=== PATIENT | female | born 1935 | race African-American/Black ===

== ENCOUNTER 2017-04-26 18:42 | Inpatient (IN) | payer MEDICARE, MEDICAID ==
[~2017-04-26] VITALS: Ht 161.9 cm; Wt 81.6 kg
[2017-04-26 21:00] VITALS: BP 149/76
[2017-04-26] MEDS ORDERED: M.V.I. ADULT10 ML ORAL (21:51)
[2017-04-26] MEDS ORDERED: GLUCAGEN1 M1 IM (21:51)
[2017-04-26] MEDS ORDERED: IPRATROPIU0.2 MG/1 M HHN (21:51)
[2017-04-26] MEDS ORDERED: LORAZEPAM1 MG ORAL (21:51)
[2017-04-26] MEDS ORDERED: ASPIRIN81 MG ORAL (21:51)
[2017-04-26] MEDS ORDERED: CATAPRES0.1 MG ORAL (21:51)
[2017-04-26] MEDS ORDERED: GLIMEPIRIDE4 MG ORAL (21:51)
[2017-04-26] MEDS ORDERED: SEROQUEL200 MG ORAL (21:51)
[2017-04-26] MEDS ORDERED: PANTOPRAZOLE SO40 MG ORAL (21:51)
[2017-04-26] MEDS ORDERED: AMLODIPINE BES2.5 MG ORAL (21:51)
[2017-04-26] MEDS ORDERED: METFORMIN HCL500 M1 ORAL (21:51)
[2017-04-26] MEDS ORDERED: NORCO 5-325 TA1 EAC1 ORAL (21:51)
[2017-04-26] MEDS ORDERED: ZOLPIDEM TARTRAT5 MG ORAL (21:51)
[2017-04-26] MEDS ORDERED: LEVOTHYROXINE25 MCG ORAL (21:51)
[2017-04-26] MEDS ORDERED: SYMLIN600 MCG/1 SUBQ (21:51)
[2017-04-26] MEDS ORDERED: DIVALPROEX SOD500 MG PO (21:51)
[2017-04-26] MEDS ORDERED: COLACE100 MG ORAL (21:51)
[2017-04-26] MEDS ORDERED: HydrALAZINE 25mg tab ORAL PRN (22:15)
[2017-04-27] VITALS (7 sets, daily range): BP systolic 139–157; BP diastolic 67–84
[2017-04-27 02:06] LABS: APPEARANCE,URINE CLEAR; KETONES,URINE NEGATIVE (NEGATIVE); LEUKOCYTE ESTERASE ,URINE NEGATIVE (NEGATIVE); NITRITE,URINE NEGATIVE (NEGATIVE); PH,URINE 6.5 (4.5-8.0); PROTEIN,URINE NEGATIVE (NEGATIVE); UROBILINOGEN,URINE NORMAL MG/DL (0.0-1.0)
[2017-04-27] MEDS ORDERED: Haloperidol 5mg/ml Inj IM ONE (03:00)
[2017-04-27] MEDS: NovoLOG Insulin Flexpen SUBQ SCH ×4 (05:47→20:52)
[2017-04-27 06:46] LABS: BASOPHILS % (AUTO) 1.7 % (0.0-2.0); EOSINOPHILS % (AUTO) 2.6 % (0.0-3.0); LYMPHOCYTES % (AUTO) 37.1 % (20.0-45.0); MEAN CORPUSCULAR HEMOGLOBIN 29.4 PG (27.0-31.0); MEAN CORPUSCULAR HGB CONC 32.5 G/DL (32.0-36.0); MEAN CORPUSCULAR VOLUME 91 FL (80-99); MEAN PLATELET VOLUME 7.2 FL (6.5-10.1); NEUTROPHILS % (AUTO) 49.6 % (45.0-75.0); PLATELET COUNT 199 K/UL (150-450); RED BLOOD COUNT 4.27 M/UL (4.20-5.40); RED CELL DISTRIBUTION WIDTH 13.7 % (11.6-14.8)
[2017-04-27 07:01] LABS: HEMOGLOBIN A1C 10.6 % (4.3-6.0)
[2017-04-27 07:28] LABS: FOLIC ACID 15.4 NG/ML (8.6-58.9)
[2017-04-27 07:38] LABS: ALANINE AMINOTRANSFERASE 19 U/L (12-78); ALBUMIN/GLOBULIN RATIO 0.8 (1.0-2.7); ANION GAP 7 mmol/L (5-15); ASPARTATE AMINO TRANSFERASE 20 U/L (15-37); CALCIUM 9.7 MG/DL (8.5-10.1); CARBON DIOXIDE 29 MMOL/L (21-32); CHLORIDE 106 MMOL/L (98-107); POTASSIUM 3.8 MMOL/L (3.5-5.1); SODIUM 142 MMOL/L (136-145); THYROID STIMULATING HORMONE 1.227 uiU/mL (0.358-3.740); TOTAL PROTEIN 7.6 G/DL (6.4-8.2); VALPROIC ACID 12 MCG/ML (50-100)
[2017-04-27] MEDS: Depakote 500mg tab ORAL SCH (09:20)
[2017-04-27] MEDS: Heparin 5000 units/ml inj SUBQ SCH ×2 (09:22→20:52)
--- NOTE | 2017-04-27 11:11 | Diagnostic Imaging Report ---
Indication: Chest pain Technique: One view of the chest Comparison: none Findings: Lungs and pleural spaces are clear. Heart size is upper limits of normal Impression: No acute process
--- NOTE | 2017-04-27 14:18 | History and Physical ---
History of Present Illness General Date patient seen: Apr 27, 2017 Time patient seen: 16:49 Reason for Hospitalization: AMS Present Illness HPI 82y/o female with pmh of HTN, HLD, hypothyroidism, DM2, psychiatric disorder who presents from SNF with AMS. Pt poor historian. Per reports, pt increasingly agitated and noted to be hearing/seeing thinks, talking to herself. Pt only oriented to name. Unclear baseline mental status, but pt usually less agitated and w/o katharine hallucinations. No reports of f/c, n/v, d/c, chest pain, SOB, focal weakness/numbness/tingling. Pt states she has some kids in her stomach. Allergies: Coded Allergies: GRAPE (Verified Allergy, Unknown, Rash, 04/26/17) PENICILLINS (Verified Allergy, Unknown, Rash, 04/26/17) TOMATO (Verified Allergy, Unknown, Rash, 04/26/17) Medication History Scheduled Amlodipine Besylate* (Amlodipine Besylate*), 2.5 MG ORAL DAILY, (Reported) Aspirin* (Aspirin*), 81 MG ORAL DAILY, (Reported) Divalproex Sodium (Divalproex Sodium), 500 MG PO DAILY, (Reported) Docusate Sodium* (Colace*), 250 MG ORAL DAILY, (Reported) Glimepiride* (Glimepiride*), 4 MG ORAL BEFORE BREAKFAST, (Reported) Levothyroxine Sodium* (Levothyroxine Sodium*), 25 MCG ORAL BEFORE BREAKFAST, ( Reported) Metformin Hcl* (Metformin Hcl*), 500 MG ORAL TWICE A DAY, (Reported) Mvi, Adult No.1 With Vit K (M.v.i. Adult), 10 TAB ORAL DAILY, (Reported) Pantoprazole* (Pantoprazole*), 40 MG ORAL BEFORE BREAKFAST, (Reported) Quetiapine Fumarate* (Seroquel*), 200 MG ORAL TWICE A DAY, (Reported) Scheduled PRN Clonidine Hcl* (Catapres*), 0.1 MG ORAL EVERY 6 HOURS PRN for For High Blood Pressure, (Reported) Glucagon,Human Recombinant (Glucagen), 1 MG IM for Hypoglycemia, (Reported) Hydrocodone Bit/Acetaminophen 5-325* ([place] 5-325 Tablet*), 1 TAB ORAL Q6HR PRN for For Pain, (Reported) Ipratropium [place] 0.5MG/2.5ML (Ipratropium [place] 0.5MG/2.5ML), 0.5 MG HHN Q6H PRN for Shortness of Breath, (Reported) Lorazepam* (Lorazepam*), 1 MG ORAL EVERY 6 HOURS PRN for For Anxiety, (Reported) Zolpidem Tartrate* (Zolpidem Tartrate*), 5 MG ORAL BEDTIME PRN for Insomnia, ( Reported) Miscellaneous Medications Insulin Regular, Human (Humulin R), 600 MCG SUBQ, (Reported) Patient History History Provided By: Patient, Medical Record, PMD Healthcare decision maker N Resuscitation status Full Code Advanced Directive on File Past Medical/Surgical History Past Medical/Surgical History: (1) HTN (hypertension) (2) HLD (hyperlipidemia) (3) Hypothyroidism (4) DM2 (diabetes mellitus, type 2) (5) Psychiatric disorder Family History Family History: Patient reports no known family medical history. Social History Social History: (1) lives at [facility] Review of Systems Constitutional: Reports: weakness Eye: Reports: no symptoms ENT: Reports: no symptoms Respiratory: Reports: no symptoms Cardiovascular: Reports: no symptoms Gastrointestinal: Reports: no symptoms Genitourinary: Reports: no symptoms Musculoskeletal: Reports: no symptoms Skin: Reports: no symptoms Psychiatric: Reports: hallucinations Neurological: Reports: no symptoms Endocrine: Reports: no symptoms Hematologic/Lymphatic: Reports: no symptoms Physical Exam Physical Exam Narrative General: alert, cooperative, no distress, appears stated age, confused, + hallucinations Head: normocephalic, without obvious abnormality, atraumatic Eyes: conjunctivae/corneas clear. PERRL, EOM's intact Throat: lips, mucosa, and tongue normal. MMM Neck: supple, symmetrical, trachea midline, and no JVD Lungs: clear to auscultation bilaterally Heart: regular rate and rhythm, S1, S2 normal, no murmur, click, rub or gallop Abdomen: soft, non-tender, non-distended, bowel sounds normal; no masses or organomegaly Extremities: extremities normal, atraumatic, no cyanosis or edema Pulses: 2+ and symmetric Skin: skin color, texture, turgor normal; no rashes or lesions Neurologic: grossly normal, no focal deficits Last 24 Hour Vital Signs Date Time Temp Pulse Resp B/P (MAP) Pulse Ox O2 Delivery O2 Flow Rate FiO2 04/27/17 08:00 96.4 67 20 157/73 100 Room Air 04/27/17 04:00 98.1 83 17 156/78 99 04/27/17 00:00 97.7 75 20 153/84 97 Room Air 04/26/17 21:00 99.0 76 20 149/76 99 Room Air Intake and Output 04/27/17 04/28/17 19:00 07:00 Intake Total 480 ml Balance 480 ml Intake Oral 480 ml # Voids 2 Laboratory Tests Test 04/27/17 01:40 04/27/17 05:20 Urine Color Yellow Urine Appearance Clear Urine pH 6.5 (4.5-8.0) Urine Specific [place] 1.010 (1.005-1.035) Urine Protein Negative (NEGATIVE) Urine Glucose (UA) 2+ (NEGATIVE) H Urine Ketones Negative (NEGATIVE) Urine Occult Blood Negative (NEGATIVE) Urine Nitrite Negative (NEGATIVE) Urine Bilirubin Negative (NEGATIVE) Urine Urobilinogen Normal MG/DL (0.0-1.0) Urine Leukocyte Esterase Negative (NEGATIVE) White Blood Count 5.0 K/UL (4.8-10.8) Red Blood Count 4.27 M/UL (4.20-5.40) Hemoglobin 12.6 G/DL (12.0-16.0) Hematocrit 38.7 % (37.0-47.0) Mean Corpuscular Volume 91 FL (80-99) Mean Corpuscular Hemoglobin 29.4 PG (27.0-31.0) Mean Corpuscular Hemoglobin Concent 32.5 G/DL (32.0-36.0) Red Cell Distribution Width 13.7 % (11.6-14.8) Platelet Count 199 K/UL (150-450) Mean Platelet Volume 7.2 FL (6.5-10.1) Neutrophils (%) (Auto) 49.6 % (45.0-75.0) Lymphocytes (%) (Auto) 37.1 % (20.0-45.0) Monocytes (%) (Auto) 9.0 % (1.0-10.0) Eosinophils (%) (Auto) 2.6 % (0.0-3.0) Basophils (%) (Auto) 1.7 % (0.0-2.0) Sodium Level 142 MMOL/L (136-145) Potassium Level 3.8 MMOL/L (3.5-5.1) Chloride Level 106 MMOL/L (98-107) Carbon Dioxide Level 29 MMOL/L (21-32) Anion Gap 7 mmol/L (5-15) Blood Urea Nitrogen 16 mg/dL (7-18) Creatinine 1.0 MG/DL (0.55-1.30) Estimat Glomerular Filtration Rate mL/min (>60) Glucose Level 205 MG/DL (74-106) H Hemoglobin A1c 10.6 % (4.3-6.0) H Calcium Level 9.7 MG/DL (8.5-10.1) Total Bilirubin 0.3 MG/DL (0.2-1.0) Aspartate Amino Transf (AST/SGOT) 20 U/L (15-37) Alanine Aminotransferase (ALT/SGPT) 19 U/L (12-78) Alkaline Phosphatase 65 U/L (46-116) Total Protein 7.6 G/DL (6.4-8.2) Albumin 3.4 G/DL (3.4-5.0) Globulin 4.2 g/dL Albumin/Globulin Ratio 0.8 (1.0-2.7) L Vitamin B12 Level 884 PG/ML (193-986) Folate 15.4 NG/ML (8.6-58.9) Thyroid Stimulating Hormone (TSH) 1.227 uiU/mL (0.358-3.740) Valproic Acid (Depakene) Level 12 MCG/ML (50-100) L Height (Feet): 5 Height (Inches): 3.75 Weight (Pounds): 180 Medications Current Medications Medications (Trade) Dose Ordered Sig/Kendra Route PRN Reason Start Time Stop Time Status Last Admin Dose Admin Dextrose (Dextrose 50%) STAT PRN IV Hypoglycemia 04/26/17 22:15 05/26/17 22:14 Divalproex Sodium (Depakote) 500 mg DAILY ORAL 04/27/17 09:00 05/27/17 08:59 04/27/17 09:20 Heparin Sodium (Porcine) (Heparin 5000 units/ml) 5,000 units EVERY 12 HOURS SUBQ 04/27/17 09:00 05/27/17 08:59 04/27/17 09:22 Hydralazine HCl (Apresoline) 25 mg Q6HR PRN ORAL For High Blood Pressure 04/26/17 22:15 05/26/17 22:14 Insulin Aspart (NovoLOG) BEFORE MEALS AND HS SUBQ 04/27/17 06:30 05/27/17 06:29 04/27/17 12:27 Assessment/Plan Problem List: (1) Acute encephalopathy ICD Codes: G93.40 - Encephalopathy, unspecified SNOMED: 0418359 (2) Hallucinations ICD Codes: R44.3 - Hallucinations, unspecified SNOMED: 6557384 (3) HTN (hypertension) ICD Codes: I10 - Essential (primary) hypertension SNOMED: 15450025 (4) HLD (hyperlipidemia) ICD Codes: E78.5 - Hyperlipidemia, unspecified SNOMED: 23954122 (5) DM2 (diabetes mellitus, type 2) ICD Codes: E11.9 - Type 2 diabetes mellitus without complications SNOMED: 80729849 (6) Hypothyroidism ICD Codes: E03.9 - Hypothyroidism, unspecified SNOMED: 12550845 (7) Psychiatric disorder ICD Codes: F99 - Mental disorder, not otherwise specified SNOMED: 20068738, 544285367 Status: stable Assessment/Plan Admit inpt Check for reversible causes of encephalopathy--f/u B12, folate, TSH, RPR, vitamin D Psych eval Neuro checks Sitter at bedside fo safety Haldol PRN agitation Cont SNF meds Pain control, bowel regimen Supportive care DVT Prophylaxis: SCD, HSQ Code Status: Full Hospital Classification Declaration: Based on this initial evaluation, and depending on the patient's clinical course, I anticipate that this patient will require hospitalization for 2-3 days for acute encephalopathy and close respiratory/hemodynamic monitoring. Disposition: Once the patient is stable to leave the hospital, I anticipate the patient will likely be discharged to the following environment: back to SNF vs inpatient psych I spent 70 minutes on this patient's case, and 38 minutes were dedicated to counseling and/or care coordination. Discussed with patient/family, nursing staff, SW/CM, psych regarding clinical status, treatment course, and disposition planning. Time of note may not reflect time of encounter. Johnathan Saldana M.D. Apr 27, 2017 14:17
[2017-04-27] MEDS ORDERED: Norco 5mg/325mg tab ORAL PRN (14:30)
[2017-04-27] MEDS: Aspirin Baby 81mg ORAL SCH (15:06)
[2017-04-27] MEDS: Docusate 250mg cap ORAL SCH (17:05)
[2017-04-27] MEDS: metFORMIN 500mg tab ORAL SCH (17:05)
[2017-04-27] MEDS: QUEtiapine 200mg tab ORAL SCH (18:00)
[2017-04-28 00:34] VITALS: BP 128/72
[2017-04-28 04:00] VITALS: BP 126/76
[2017-04-28] MEDS: metFORMIN 500mg tab ORAL SCH ×2 (06:12→17:22)
[2017-04-28] MEDS: Levothyroxine 25mcg tab ORAL SCH (06:12)
[2017-04-28] MEDS: NovoLOG Insulin Flexpen SUBQ SCH ×4 (06:19→20:10)
[2017-04-28 07:41] VITALS: BP 145/74
[2017-04-28] MEDS: Aspirin Baby 81mg ORAL SCH (09:44)
[2017-04-28] MEDS: Docusate 250mg cap ORAL SCH (09:44)
[2017-04-28] MEDS: Depakote 500mg tab ORAL SCH ×2 (09:44→20:08)
[2017-04-28] MEDS: QUEtiapine 200mg tab ORAL SCH (09:45)
[2017-04-28] MEDS: Heparin 5000 units/ml inj SUBQ SCH ×2 (09:47→20:10)
[2017-04-28 11:37] VITALS: BP 144/81
--- NOTE | 2017-04-28 15:46 | General Progress Note ---
Assessment/Plan Problem List: (1) Acute encephalopathy ICD Codes: G93.40 - Encephalopathy, unspecified SNOMED: 1706379 (2) Hallucinations ICD Codes: R44.3 - Hallucinations, unspecified SNOMED: 7987699 (3) HTN (hypertension) ICD Codes: I10 - Essential (primary) hypertension SNOMED: 70851882 (4) HLD (hyperlipidemia) ICD Codes: E78.5 - Hyperlipidemia, unspecified SNOMED: 28737087 (5) DM2 (diabetes mellitus, type 2) ICD Codes: E11.9 - Type 2 diabetes mellitus without complications SNOMED: 96904355 (6) Hypothyroidism ICD Codes: E03.9 - Hypothyroidism, unspecified SNOMED: 37851306 (7) Psychiatric disorder ICD Codes: F99 - Mental disorder, not otherwise specified SNOMED: 16453752, 220449827 Status: stable Assessment/Plan Admit inpt F/u workup for reversible causes of encephalopathy--thus far unremarkable, vit D level pending F/u psych eval Neuro checks Sitter at bedside fo safety Haldol PRN agitation Cont SNF meds Pain control, bowel regimen Supportive care DVT Prophylaxis: SCD, HSQ Code Status: Full Hospital Classification Declaration: Based on this initial evaluation, and depending on the patient's clinical course, I anticipate that this patient will require hospitalization for 1-2 days for acute encephalopathy and close respiratory/hemodynamic monitoring. Disposition: Once the patient is stable to leave the hospital, I anticipate the patient will likely be discharged to the following environment: back to SNF vs inpatient psych Discussed with patient/family, nursing staff, SW/CM, psych regarding clinical status, treatment course, and disposition planning. Time of note may not reflect time of encounter. Subjective Date patient seen: Apr 28, 2017 Time patient seen: 12:00 ROS Limited/Unobtainable: Yes Constitutional: Reports: no symptoms HEENT: Reports: no symptoms Cardiovascular: Reports: no symptoms Respiratory: Reports: no symptoms Gastrointestinal/Abdominal: Reports: no symptoms Genitourinary: Reports: no symptoms Neurologic/Psychiatric: Reports: no symptoms Endocrine: Reports: no symptoms Hematologic/Lymphatic: Reports: no symptoms Allergies: Coded Allergies: GRAPE (Verified Allergy, Unknown, Rash, 04/26/17) PENICILLINS (Verified Allergy, Unknown, Rash, 04/26/17) TOMATO (Verified Allergy, Unknown, Rash, 04/26/17) All Systems: reviewed and negative except above Subjective No acute o/n events Agitations appears to have improved Sitter at bedside Pt denies f/c, n/v, d/c, chest pain, SOB Objective Last 24 Hour Vital Signs Date Time Temp Pulse Resp B/P (MAP) Pulse Ox O2 Delivery O2 Flow Rate FiO2 04/28/17 11:37 98.4 74 20 144/81 98 04/28/17 09:45 71 148/76 04/28/17 07:41 98.0 65 20 145/74 97 04/28/17 04:00 Room Air 04/28/17 04:00 97.8 75 18 126/76 100 Room Air 04/28/17 00:34 Room Air 04/28/17 00:34 97.7 76 18 128/72 99 Room Air 04/27/17 20:00 98.1 73 20 139/67 98 Room Air 04/27/17 20:00 Room Air 04/27/17 16:08 96.6 71 19 147/76 100 Intake and Output 04/28/17 04/29/17 19:00 07:00 Intake Total 480 ml Output Total 200 ml Balance 280 ml Intake Oral 480 ml Output Urine Total 200 ml # Voids 3 Height (Feet): 5 Height (Inches): 3.75 Weight (Pounds): 180 Objective General: alert, cooperative, no distress, appears stated age, confused Head: normocephalic, without obvious abnormality, atraumatic Eyes: conjunctivae/corneas clear. PERRL, EOM's intact Throat: lips, mucosa, and tongue normal. MMM Neck: supple, symmetrical, trachea midline, and no JVD Lungs: clear to auscultation bilaterally Heart: regular rate and rhythm, S1, S2 normal, no murmur, click, rub or gallop Abdomen: soft, non-tender, non-distended, bowel sounds normal; no masses or organomegaly Extremities: extremities normal, atraumatic, no cyanosis or edema Pulses: 2+ and symmetric Skin: skin color, texture, turgor normal; no rashes or lesions Neurologic: grossly normal, no focal deficits Johnathan Saldana M.D. Apr 28, 2017 15:46
[2017-04-28 16:00] VITALS: BP 188/94
--- NOTE | 2017-04-28 16:00 | Consultation ---
DATE OF CONSULTATION: 04/28/2017 NOTE: INCOMPLETE DICTATION HISTORY OF PRESENT ILLNESS: This is an 82-year-old female with a history of hypertension, hypothyroidism, diabetic mellitus, depression, cognitive impairment, who was admitted to the hospital due to altered mental status. The patient apparently became agitated. Currently, she is tearful and has cognitive impairment. She is a poor historian. She thinks that we are in 1999. The patient is easily agitated. The patient has cognitive impairment and waxing and waning consciousness. PAST PSYCHIATRIC HISTORY: Diagnosed with depression and psychotic disorder in the past. She has been receiving Seroquel and Depakote as well as benzodiazepines. PAST MEDICAL HISTORY: Significant for hypothyroidism and hypertension. Aubrey Portillo M.D. DR: ELPIDIO JOB#: [id number] CC:
[2017-04-28 20:00] VITALS: BP 148/83
[2017-04-29] VITALS: BP 135/52
[2017-04-29 04:00] VITALS: BP 137/61
[2017-04-29] MEDS: Levothyroxine 25mcg tab ORAL SCH (05:57)
[2017-04-29] MEDS: metFORMIN 500mg tab ORAL SCH (05:57)
[2017-04-29] MEDS: NovoLOG Insulin Flexpen SUBQ SCH ×2 (05:59→11:30)
[2017-04-29 08:12] VITALS: BP 148/69
[2017-04-29] MEDS: Aspirin Baby 81mg ORAL SCH (09:46)
[2017-04-29] MEDS: Depakote 500mg tab ORAL SCH (09:46)
[2017-04-29] MEDS: Docusate 250mg cap ORAL SCH (09:46)
[2017-04-29] MEDS: Heparin 5000 units/ml inj SUBQ SCH (09:47)
[2017-04-29 12:37] VITALS: BP 152/88
--- NOTE | 2017-04-29 19:22 | Discharge Summary ---
Discharge Summary Hospital Course Date of Admission Apr 26, 2017 at 20:23 Date of Discharge Apr 29, 2017 at 15:23 Admitting Diagnosis Altered mental status, agitation, hallucinations Reason for Hospitalization: Acute encephalopathy HPI 82y/o female with pmh of HTN, HLD, hypothyroidism, DM2, psychiatric disorder who presents from SNF with AMS. Pt poor historian. Per reports, pt increasingly agitated and noted to be hearing/seeing thinks, talking to herself. Pt only oriented to name. Unclear baseline mental status, but pt usually less agitated and w/o katharine hallucinations. No reports of f/c, n/v, d/c, chest pain, SOB, focal weakness/numbness/tingling. Pt states she has some kids in her stomach. Consultations Psychiatry Hospital Course Pt was admitted and seen by psychiatry. Workup for reversible causes of encephalopathy was unremarkable. Pt's psych meds were titrated and pt with improvement in mental status and agitation. She was cleared by psychiatry for discharge back to SNF. Discharge physical exam General: alert, cooperative, no distress, appears stated age, confused Head: normocephalic, without obvious abnormality, atraumatic Eyes: conjunctivae/corneas clear. PERRL, EOM's intact Throat: lips, mucosa, and tongue normal. MMM Neck: supple, symmetrical, trachea midline, and no JVD Lungs: clear to auscultation bilaterally Heart: regular rate and rhythm, S1, S2 normal, no murmur, click, rub or gallop Abdomen: soft, non-tender, non-distended, bowel sounds normal; no masses or organomegaly Extremities: extremities normal, atraumatic, no cyanosis or edema Pulses: 2+ and symmetric Skin: skin color, texture, turgor normal; no rashes or lesions Neurologic: grossly normal, no focal deficits Discharge Medications Continued Medications: Amlodipine Besylate* (Amlodipine Besylate*) 2.5 Mg Tablet 2.5 MG ORAL DAILY, TAB Aspirin* (Aspirin*) 81 Mg Tab.chew 81 MG ORAL DAILY, TAB Clonidine Hcl* (Catapres*) 0.1 Mg Tablet 0.1 MG ORAL EVERY 6 HOURS PRN for For High Blood Pressure, TAB Divalproex Sodium (Divalproex Sodium) 500 Mg Tablet.dr 500 MG PO DAILY for For Seizures, TAB Docusate Sodium* (Colace*) 100 Mg Capsule 250 MG ORAL DAILY, CAP Glimepiride* (Glimepiride*) 4 Mg Tablet 4 MG ORAL BEFORE BREAKFAST, TAB Glucagon,Human Recombinant (Glucagen) 1 Mg Vial 1 MG IM PRN for Hypoglycemia, KIT Hydrocodone Bit/Acetaminophen 5-325* ([place] 5-325 Tablet*) 1 Each Tablet 1 TAB ORAL Q6HR PRN for For Pain, TAB Insulin Regular, Human (Humulin R) 100 Unit/1 Ml Vial 600 MCG SUBQ, VIAL Ipratropium [place] 0.5MG/2.5ML (Ipratropium [place] 0.5MG/2.5ML) 0.2 Mg/1 Ml Solution 0.5 MG HHN Q6H PRN for Shortness of Breath, #28 EA Levothyroxine Sodium* (Levothyroxine Sodium*) 25 Mcg Tablet 25 MCG ORAL BEFORE BREAKFAST, TAB Take in the morning on an empty stomach, at least 30 minutes before food. Lorazepam* (Lorazepam*) 1 Mg Tablet 1 MG ORAL EVERY 6 HOURS PRN for For Anxiety, TAB Metformin Hcl* (Metformin Hcl*) 500 Mg Tablet 500 MG ORAL TWICE A DAY, TAB Mvi, Adult No.1 With Vit K (M.v.i. Adult) 10 Ml Vial 10 TAB ORAL DAILY, TAB Pantoprazole* (Pantoprazole*) 40 Mg Tablet.dr 40 MG ORAL BEFORE BREAKFAST, TAB Quetiapine Fumarate* (Seroquel*) 200 Mg Tablet 200 MG ORAL TWICE A DAY, TAB Zolpidem Tartrate* (Zolpidem Tartrate*) 5 Mg Tablet 5 MG ORAL BEDTIME PRN for Insomnia, TAB 0 Refills Discharge Condition Upon Discharge: stable Discharge Disposition Patient was discharged to SNF/Subacute Facility(03) Discharge Diagnoses: (1) Acute encephalopathy (2) Hallucinations (3) Psychiatric disorder (4) Hypothyroidism (5) HTN (hypertension) (6) HLD (hyperlipidemia) (7) DM2 (diabetes mellitus, type 2) Johnathan Saldana M.D. Apr 29, 2017 19:22
--- NOTE | 2017-04-29 23:26 | General Progress Note ---
Assessment/Plan Status: stable Assessment/Plan psychosis cont current meds Subjective Date patient seen: Apr 28, 2017 Neurologic/Psychiatric: Reports: anxiety, depressed, emotional problems Allergies: Coded Allergies: GRAPE (Verified Allergy, Unknown, Rash, 04/26/17) PENICILLINS (Verified Allergy, Unknown, Rash, 04/26/17) TOMATO (Verified Allergy, Unknown, Rash, 04/26/17) Subjective the pt is disorganized and is confused Objective Last 24 Hour Vital Signs Date Time Temp Pulse Resp B/P (MAP) Pulse Ox O2 Delivery O2 Flow Rate FiO2 04/29/17 12:37 97.0 62 20 152/88 99 04/29/17 09:45 66 148/69 04/29/17 08:12 97.5 66 18 148/69 99 04/29/17 04:00 97 Room Air 04/29/17 04:00 98.0 81 18 137/61 97 Room Air 04/29/17 00:00 97.9 63 18 135/52 97 04/29/17 00:00 97 Room Air Intake and Output 04/29/17 04/30/17 19:00 07:00 # Voids 2 Height (Feet): 5 Height (Inches): 3.75 Weight (Pounds): 180 General Appearance: no apparent distress, lethargic, confused, agitated Neurologic: alert, responsive, disoriented, depressed affect Aubrey Portillo M.D. Apr 29, 2017 23:26
--- NOTE | 2017-04-29 23:27 | General Progress Note ---
Assessment/Plan Assessment/Plan psychosis cont current meds Subjective Date patient seen: Apr 29, 2017 Neurologic/Psychiatric: Reports: anxiety, depressed, emotional problems Allergies: Coded Allergies: GRAPE (Verified Allergy, Unknown, Rash, 04/26/17) PENICILLINS (Verified Allergy, Unknown, Rash, 04/26/17) TOMATO (Verified Allergy, Unknown, Rash, 04/26/17) Subjective the pt is disorganized and is delusional Objective Last 24 Hour Vital Signs Date Time Temp Pulse Resp B/P (MAP) Pulse Ox O2 Delivery O2 Flow Rate FiO2 04/29/17 12:37 97.0 62 20 152/88 99 04/29/17 09:45 66 148/69 04/29/17 08:12 97.5 66 18 148/69 99 04/29/17 04:00 97 Room Air 04/29/17 04:00 98.0 81 18 137/61 97 Room Air 04/29/17 00:00 97.9 63 18 135/52 97 04/29/17 00:00 97 Room Air Intake and Output 04/29/17 04/30/17 19:00 07:00 # Voids 2 Height (Feet): 5 Height (Inches): 3.75 Weight (Pounds): 180 General Appearance: alert, confused Neurologic: alert, responsive, disoriented Aubrey Portillo M.D. Apr 29, 2017 23:27
[2017-05-03 09:02] LABS: VITAMIN D 25-OH TOTAL 18 ng/mL (.)
== END 2017-04-29 15:23 | DRG 71 ==
LOC: 4E 20:23
DX: G93.40 Encephalopathy, unspecified (principal); R44.3 Hallucinations, unspecified; E11.9 Type 2 diabetes mellitus without complications; I10 Essential (primary) hypertension; E78.5 Hyperlipidemia, unspecified; E03.9 Hypothyroidism, unspecified; F99 Mental disorder, not otherwise specified; Z88.0 Allergy status to penicillin; Z91.018 Allergy to other foods; Z79.4 Long term (current) use of insulin; F32.9 Major depressive disorder, single episode, unspecified
CPT/HCPCS: 36415; 71010; 80053; 80164; 81003; 82306; 82607; 82746; 82962; 83036; 84443; 85025; 86592; 87081; 87086; J1815